=== PATIENT | male | born 1965 | race African-American/Black ===

== ENCOUNTER 2017-01-20 15:07 | Outpatient (CLI) | payer MEDICARE, OTHER | END 2017-01-20 15:10 | LOC: POD 15:07 | PROVIDERS: ATTEND Podiatrist | DX: E11.42 Type 2 diabetes mellitus with diabetic polyneuropathy (principal); M20.22 Hallux rigidus, left foot; L60.0 Ingrowing nail | CPT/HCPCS: G0463 ==

== ENCOUNTER 2017-05-01 13:25 | Outpatient (CLI) | payer MEDICARE, OTHER | END 2017-05-01 13:26 | LOC: POD 13:25 | PROVIDERS: ATTEND Podiatrist | DX: M79.674 Pain in right toe(s) (principal); M79.675 Pain in left toe(s) | CPT/HCPCS: 11721; G0463 ==